=== PATIENT | female | born 1955 | race Caucasian/White ===

== ENCOUNTER 2018-07-20 03:25 | Inpatient (IN) | payer OTHER ==
[~2018-07-20] VITALS: Ht 170.2 cm; Wt 95.7 kg
--- NOTE | 2018-07-20 03:36 | NUR ---
Pt BROUGHT IN ON CPAP, SPO2 99%. PLACED ON 6L SIMPLE MASK; SPO2 REMAINS 99%. RR 44. BREATH SOUNDS CLEAR THROUGHOUT. WILL CONTINUE TO MONITOR.
--- NOTE | 2018-07-20 03:45 | NUR ---
BIB AMBULANCE, IN MODERATE DISTRESS, ALERT AND ORIENTED X 4
--- NOTE | 2018-07-20 03:55 | NUR ---
ASSISTED INTO A GOWN, REMOVED FROM BIPAP, PATIENT ABLE TO MAINTAIN 02 SAT WITH MASK @ 4LPM, MADE COMFORTABLE IN BED
[2018-07-20 04:06] LABS: CALCIUM 9.5 mg/dL (8.5-10.1); CARBON DIOXIDE 23.4 mmol/L (21-32); CREATININE SERUM 1.6 mg/dL (0.6-1.0)
[2018-07-20 04:11] LABS: ALBUMIN 3.3 g/dL (3.4-5.0); BILIRUBIN TOTAL 2.45 mg/dL (0.20-1.00); TOTAL PROTEIN, SERUM 7.4 g/dL (6.4-8.2)
[2018-07-20 04:14] LABS: RED CELL DISTRIBUTION WIDTH 17.6 % (11.5-14.5)
[2018-07-20 04:29] LABS: BAND NEUTROPHIL 1 % (0-10); MONOCYTE 7 % (0-7); SEGMENTED NEUTROPHILS 86 % (37-75)
[2018-07-20 04:31] LABS: PLATELET MORPHOLOGY PLATELETS INCREASED; rbc morphology (normal/abnorm) NORMAL (NORMAL)
[2018-07-20 04:42] LABS: PLATELET COUNT 513 x10^3mcL (130-400)
--- NOTE | 2018-07-20 04:53 | NUR ---
PT PLACED ON 6L VIA MASK DUE TO PT O2 SATURATION PERSISTENTLY IN LOW 90'S. PRIMARY RN MADE AWARE.
[2018-07-20 05:31] LABS: CHOLESTEROL/HDL RATIO 3.1; MAGNESIUM 2.1 mg/dL (1.8-2.4); PHOSPHOROUS 3.2 mg/dL (2.5-4.9)
--- NOTE | 2018-07-20 05:35 | NUR ---
PATIENT ASLEEP, TOLERATES SITTING POSITION BETTER
[2018-07-20 05:40] LABS: FREE T4 1.27 ng/dL (0.76-1.46); FREE THYROXINE INDEX 2.6 ug/dL (1.4-4.5); T4(THYROXINE) 7.1 ug/dL (4.7-13.3)
--- NOTE | 2018-07-20 05:45 | NUR ---
REPORT GIVEN TO CHERYL LANGFORD FOR CONTINUITY OF CARE
[2018-07-20 05:54] LABS: T3 TOTAL 0.72 ng/mL
--- NOTE | 2018-07-20 06:00 | NUR ---
RECEIVED PT FROM ED. PT AOX4. AFIB ON MONITOR, HR 89. DENIES CP/PRESSURE. PULSES PALPABLE, NO EDEMA NOTED. LUNG SOUNDS DIMINISHED, ON 5L SIMPLE MASK. SOB NOTED UPON EXERTION, SPO2 95%. BOWEL SOUNDS ACTIVE, ABD SOFT/NONDISTENDED. DENIES ABD PAIN. VOIDS FREELY. IV NOTED TO L. HAND, INTACT AND PATENT. BED IN LOWEST POSITION. CALL LIGHT WITHIN REACH. WILL CONTINUE TO MONITOR.
[2018-07-20 06:12] VITALS: BP 99/67
--- NOTE | 2018-07-20 06:26 | NUR ---
LACTIC ACID 2.4, DR. IGLESIAS NOTIFIED VIA [employer].
--- NOTE | 2018-07-20 06:27 | NUR ---
LACTIC ACID 2.3, DR. IGLESIAS NOTIFIED VIA [employer].
--- NOTE | 2018-07-20 07:00 | NUR ---
RECIEVED REPORT FROM LORY LUNA.
[2018-07-20 08:05] VITALS: Ht 170.2 cm; Wt 95.7 kg
--- NOTE | 2018-07-20 08:27 | NUR ---
MIGUELITO TECH @ BEDSIDE. PREPARING FOR SCAN.
--- NOTE | 2018-07-20 09:50 | NUR ---
MACHINE III COREMAKER @ BEDSIDE.
--- NOTE | 2018-07-20 10:36 | NUR ---
DR. BOX, RESIDENTS, SUPERVISOR LITHARGE AND PRIMARY RN AT BEDSIDE FOR MORNING ROUNDS. PLAN OF CARE DISCUSSED. WILL CONT TO MONITOR.
--- NOTE | 2018-07-20 10:55 | NUR ---
PER SHEEP FARMER ESTIMATED EF 10-15%
--- NOTE | 2018-07-20 11:52 | NUR ---
DR. STRINGER MADE AWARE OF HOSPICE RECCOMENDATION FROM DR. FARIA DUE TO ECHO RESULTS. RG FURTHER ORDERS AT THIS TIME.
[2018-07-20 12:00] VITALS: BP 104/77
--- NOTE | 2018-07-20 12:00 | NUR ---
JANA LÓPEZ SUSPENDED PER DR FARIA.
--- NOTE | 2018-07-20 12:24 | NUR ---
REFUSED BLOOD DRAWS.
[2018-07-20 12:56] LABS: microscopic required? NO
[2018-07-20 14:23] VITALS: BP 104/77
[2018-07-20 14:38] LABS: urine erythrocyte NEGATIVE (NEGATIVE)
[2018-07-20 14:49] LABS: AMPHETAMINE QUAL UR POSITIVE (See below)
[2018-07-20 16:00] VITALS: BP 121/68
--- NOTE | 2018-07-20 16:00 | NUR ---
HOSPICE NURSE VENKAT Porras/ ANTONI @ BEDSIDE.
--- NOTE | 2018-07-20 18:03 | NUR ---
HOSPICE NURSE VENKAT CAME AND DISCUSSED AD WITH PT AND DR RHODES. POLST CODE STATUS DNR, COPY PLACED IN CHART. NO NEW ORDERS POC TO D/C HOME THIS EVENING ONCE HOSPICE DELIVERS TO HOME.
[2018-07-20 19:30] VITALS: BP 103/59
--- NOTE | 2018-07-20 19:30 | NUR ---
PT AOX4 ABLE TO RESPOND TO COMMANDS AND MAKE NEEDS KNOWN, PT SLEEPING BUT EASILY AROUSABLE. PUPILS 4MM BRISK RESPONSE TO LIGHT BILATERALLY. NO REPORTED MARTINEZ, SPEECH CLEAR, NO FACIAL DROOP. TRACHEA MIDLINE, NO DRAINAGE TO EENT. NO EENT COMPLAINTS. PT ON 4L NC INTACT. CHEST RISE/FALL SYMMETRIC, E/U BREATHING, NO ACUTE RESP DISTRESS, DENIES SOB. LUNG SOUNDS CLEAR TO BUL, DIMINISHED BASES.S1/S2 SOUNDS HEARD, CHEST WALL STABLE, NO REPORT OF CHEST PAIN. CARDIZEM DRIP OFF PER MD. SKIN COLOR CONSISTENT WITH ETHNICITY, CAP REFILL <3 SECONDS X4, PULSES WEAK BUT PALPABLE X4 EXTREMITIES. TRACE EDEMA NOTED TO BLE.GEN WEAKNESS, NO CONTRACTURES/DEFORMITIES, PT ABLE TO TURN/REPOSITION SELF Q2H. NO JOINT SWELLING/TENDERNESS.PT OVERWEIGHT, ON CARDIAC DIET. NO S/S OF N/V.ACTIVE BOWEL SOUNDS X4 QUADRANTS, ABD SOFT/ROUND, DENIES PAIN ON PALPATION. NO BM NOTED. NO GI COMPLAINTS. PT ABLE TO VOID FREELY. NO LABIAL EDEMA OR DISCHARGE. NO URINARY COMPLAINTS. IV TO LEFT HAND 20G, PORT PATENT, NO S/S OF INFILTRATION, DRESSING CDI. SKIN WARM/DRY TO TOUCH, SKIN INTACT.PT CALM AND COOPERATIVE WITH CARE. BED AT LOWEST SETTING, CALL LIGHT WITHIN REACH, HOB ELEVATED 3O DEGREES. WILL CONT TO MONTIOR.
[2018-07-20 20:49] VITALS: BP 103/55
--- NOTE | 2018-07-20 22:00 | NUR ---
UNABLE TO CONTACT PT'S RIDE AT THIS TIME, LEFT A MESSAGE. FINANCIAL SERVICES OFFICER MADE AWARE. DR. STRINGER MADE AWARE AT THIS TIME.
--- NOTE | 2018-07-21 | NUR ---
PT'S FRIEND RADHA [phone], UNABLE TO BE CONTACTED AT THIS TIME, LEFT ANOTHER MESSAGE. TECHNICIAN AUTOMATED EQUIPMENT MADE AWARE, PER HEAVENLY TRANSFER PATIENT UP TO TELEMETRY AND AWAIT CALL BACK FROM FRIEND.
[2018-07-21 01:25] VITALS: BP 100/60
--- NOTE | 2018-07-21 01:25 | NUR ---
PT TRANSFERRED TO 224B WITH NO COMPLICATIONS, PT COMPLIANT WITH CARE. PT AWAKE AND ALERT ABLE TO RESPOND TO COMMANDS AND MAKE NEEDS KNOWN. PT DENIES ANY SOB OR RESPIRATORY ISSUES AT THIS TIME WHEN ASKED.
--- NOTE | 2018-07-21 04:45 | NUR ---
CALLED PT'S FRIEND FREDDIE, SHE SAID SHE WILL COMMUNITY OUTREACH DIRECTOR PT BEFORE 8AM. PT MADE AWARE.
--- NOTE | 2018-07-21 05:59 | NUR ---
PT SLEEPING BUT EASILY AROUSABLE AT THIS TIME. NO S/S OF ANY DISTRESS, DENIES SOB.
[2018-07-21 06:15] VITALS: BP 119/74
--- NOTE | 2018-07-21 07:05 | NUR ---
GAVE REPORT TO CHERYL NATHAN. UPDATES GIVEN QUESTIONS ANSWERED.
--- NOTE | 2018-07-21 07:45 | NUR ---
DISCHARGE INFORMATION PROVIDED TO PATIENT, PATIENT VERBALIZES UNDERSTANDING OF DISCHARGE INFORMATION. ALL QUESTIONS AND CONCERNS WERE ADDRESSED, PATIETN DENIES HAVING QUESTIONS OR CONCERNS. SCRIPTS PROVIDED ORDERED. IV CATHETER DC'D, CATHETER TIP INTACT, SITE CDI WITH NO REDNESS, EDEMA, OR DRAINAGE. TELE BOX REMOVED AND GIVEN TO NURSE LDR. PT AWAKE, ALERT, RESPIRATIONS EVEN AND UNLABORED, NO S/S OF DISTRESS NOTED. FAMILY AT BEDSIDE WITH HOME 02. NURSING PROFESSOR TO ESCORT PATIENT DOWN VIA WHEELCHAIR.
== END 2018-07-21 07:45 | disposition hospice, home (50) | DRG 194 ==
LOC: ED 03:25 → IC 05:20 → DU 07-21 01:25
PROVIDERS: Student in an Organized Health Care Education/Training Program; ADMIT Internal Medicine
DX: I11.0 Hypertensive heart disease with heart failure (principal); I21.A1 Myocardial infarction type 2; N17.0 Acute kidney failure with tubular necrosis; E44.1 Mild protein-calorie malnutrition; E11.65 Type 2 diabetes mellitus with hyperglycemia; I08.1 Rheumatic disorders of both mitral and tricuspid valves; I48.92 Unspecified atrial flutter; I48.91 Unspecified atrial fibrillation; I50.43 Acute on chronic combined systolic (congestive) and diastolic (congestive) heart failure; I42.0 Dilated cardiomyopathy; F17.210 Nicotine dependence, cigarettes, uncomplicated; Z51.5 Encounter for palliative care; J44.9 Chronic obstructive pulmonary disease, unspecified; F15.10 Other stimulant abuse, uncomplicated; Z68.33 Body mass index [BMI] 33.0-33.9, adult; Z79.899 Other long term (current) drug therapy
CPT/HCPCS: 83880; 84439; 85378; J1650; J1940; J3490; J7626